=== PATIENT | male | born 1985 | race Caucasian/White ===

== ENCOUNTER 2016-05-06 04:05 | Emergency (ER) | payer SELFPAY ==
[~2016-05-06] VITALS: Ht 185.4 cm; Wt 78.2 kg
[2016-05-06 04:13] VITALS: BP 151/93; PULSE 87; RESP 18; TEMP 97.9; O2SAT 97
[2016-05-06] MEDS ORDERED: IBUPROFEN 400 MG TAB PO ONE (04:15)
[2016-05-06] MEDS ORDERED: TETANUS/DIPHTHERIA TOXOID ADULT 0.5 ML VIAL IM ONE (04:15)
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
[2016-05-06] MEDS ORDERED: AUGM500T7 PO (04:34)
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
[2016-05-06 05:15] VITALS: BP 140/82; PULSE 88; RESP 16; O2SAT 99
[2016-05-06] MEDS ORDERED: ACETAMINOPHEN 325 MG TAB PO ONE (06:15)
== END 2016-05-06 06:25 | disposition home or self-care (01) ==
LOC: PHED 04:05
DX: S20.311A Abrasion of right front wall of thorax, initial encounter (principal); S51.852A Open bite of left forearm, initial encounter; S62.306A Unspecified fracture of fifth metacarpal bone, right hand, initial encounter for closed fracture; S50.311A Abrasion of right elbow, initial encounter; Z72.0 Tobacco use; Z23 Encounter for immunization; Y04.1XXA Assault by human bite, initial encounter; Y93.89 Activity, other specified; Y92.59 Other trade areas as the place of occurrence of the external cause; Y99.9 Unspecified external cause status
CPT/HCPCS: 29125; 73120; 90471; 90714